=== PATIENT | female | born 1990 | race Caucasian/White ===

== ENCOUNTER 2019-07-05 10:11 | Emergency (ER) | payer OTHER ==
[~2019-07-05] VITALS: Ht 162.6 cm; Wt 69.4 kg
[2019-07-05] MEDS ORDERED: mvi (10:26)
[2019-07-05 10:54] LABS: BASO % 0.5 % (0.0-1.0); EOS # 0.2 10^3/uL (0.0-0.5); EOS % 4.4 % (0.0-3.0); HEMATOCRIT 42.4 % (36.0-47.0); HEMOGLOBIN 13.1 g/dl (12.0-15.5); LYMPH # 1.1 10^3/uL (1.5-5.0); MEAN CORPUSCULAR HEMOGLOBIN 27.6 pg (27.0-33.0); MEAN CORPUSCULAR HGB CONC 30.9 g/dl (32.0-36.5); MEAN CORPUSCULAR VOLUME 89.5 fl (80.0-96.0); MONO # 0.3 10^3/uL (0.0-0.8); MONO % 8.5 % (0.0-5.0); NEUTROPHILS % 55.6 % (36.0-66.0); PLATELET COUNT, AUTOMATED 163 10^3/uL (150-450); RED BLOOD COUNT 4.74 10^6/uL (4.00-5.40); WHITE BLOOD COUNT 3.6 10^3/uL (4.0-10.0)
[2019-07-05 11:17] LABS: BLOOD UREA NITROGEN 12 MG/DL (7-18); CALCIUM LEVEL 8.7 MG/DL (8.5-10.1); CARBON DIOXIDE LEVEL 26 MEQ/L (21-32); CHLORIDE LEVEL 108 MEQ/L (98-107); CREATININE FOR GFR 0.92 MG/DL (0.55-1.30); GLOMERULAR FILTRATION RATE > 60.0 (>60); GLUCOSE, FASTING 93 MG/DL (70-100); POTASSIUM SERUM 3.8 MEQ/L (3.5-5.1); SODIUM LEVEL 140 MEQ/L (136-145)
--- NOTE | 2019-07-05 11:58 | REP ---
Pelvic sonography: History: Irregular heavy bleeding. Findings: Transabdominal scanning is performed. The patient declined transvaginal imaging. Uterine dimensions are normal at 9.0 4.8 x 5.6 cm. Endometrial echo is 0.9 cm thick and centrally placed. No focal uterine mass is seen. No free fluid is noted. Normal ovaries are seen bilaterally. Right ovary dimensions are 2.6 x 3.3 x 2.8 cm. The left ovary measures 3.1 x 1.5 x 1.8 cm. Visualized bladder marks are smooth. Impression: Normal pelvic sonography. Electronically Signed by Binh Moctezuma MD 07/05/2019 04:56 P
[2019-07-05] MEDS ORDERED: IBUP-1022 PO (12:05)
[2019-07-05] MEDS ORDERED: IBUPROFEN 800 MG TAB PO ONE (12:15)
[2019-07-05 12:16] VITALS: BP 126/74
== END 2019-07-05 12:18 | disposition home or self-care (01) ==
LOC: M ED 10:11
DX: N92.0 Excessive and frequent menstruation with regular cycle (principal); D64.9 Anemia, unspecified; Z88.8 Allergy status to other drugs, medicaments and biological substances

== ENCOUNTER → 2019-11-07 | Outpatient (CLI) | payer OTHER ==
[~2019-11-07] MED LIST: IBUP-1022 PO; mvi
--- NOTE | 2019-11-08 02:56 | REP ---
Clinical: Posterior shoulder injury . Technique: Internal rotation, external rotation, and Y view right shoulder . Findings: No acute fracture or dislocation. Mild cortical irregularity at the acromioclavicular joint is appreciated. The glenohumeral joint appears intact and normal. The subacromial space is normal. No obvious acute fracture or dislocation appreciated. Surrounding soft tissues are unremarkable. Impression: Minimal degenerative changes at the acromioclavicular joint. No acute fracture or dislocation. Electronically Signed by Anders Stevens MD 11/08/2019 02:47 A
== END ==
LOC: M WUC 10:43
PROVIDERS: ATTEND Nurse Practitioner Family
DX: M25.511 Pain in right shoulder (principal)

== ENCOUNTER → 2020-12-11 | Outpatient (REF) | payer OTHER | LOC: M LAB REF 19:20 | PROVIDERS: ATTEND Family Medicine | DX: Z01.419 Encounter for gynecological examination (general) (routine) without abnormal findings (principal) ==